=== PATIENT | female | born 1935 | race Caucasian/White ===

== ENCOUNTER 2022-02-13 11:53 | Inpatient (IN) ==
[2022-02-13] MEDS ORDERED: PANTOPRAZOLE 40 MG VIAL IV STA (12:33)
[2022-02-13] MEDS ORDERED: SODIUM CHLORIDE 0.9% 1,000 ML IV STA (12:33)
[2022-02-13 12:38] LABS: Basophils # 0.1 10*3/uL (0.0-0.2); Basophils % 0.7 % (0.0-0.8); Eosinophils # 0.1 10*3/uL (0.0-0.87); Eosinophils % 0.6 % (0.00-10.9); Hematocrit 23.1 VOL% (35.7-47.0); Hemoglobin 7.3 GM/DL (12.0-16.0); Immature Granulocytes Absolute 0.16 #; Lymphocytes % 12.7 % (21.3-54.2); Mean Corpuscular HGB Conc 31.6 GM/DL (32-36); Mean Corpuscular Volume 97.1 FL (87-102); Monocytes % 6.5 % (1.7-12.7); NRBC # 0.03 10*3/uL; Neutrophils % 78.5 % (38.7-73.9); Platelet Count 290 T/CUMM (130-400); Red Blood Count 2.38 MC/CUMM (3.8-5.5); Red Cell Distribution Width 13.5 % (9.3-17.3); White Blood Count 15.5 T/CUMM (4-12)
[2022-02-13 12:46] LABS: INR 1.1; PT Patient Result 12.2 SECS (10.1-12.1)
[2022-02-13 12:53] LABS: Alanine Aminotransferase 17 U/L (13-56); Alkaline Phosphatase 44 U/L (45-117); Aspartate Amino Transferase 14 U/L (0-37); Bilirubin,Total < 0.39 MG/DL (0.20-1.00); Blood Urea Nitrogen 111 MG/DL (7-18); Calcium 9.1 MG/DL (8.5-10.1); Carbon Dioxide 25 MMOL/L (21-32); Chloride 108 MMOL/L (98-107); Glucose 146 MG/DL (74-106); Osmolality,Calculated 312.7 MOS/KG (273-304); Potassium 4.4 MMOL/L (3.5-5.1); Sodium 138 MMOL/L (136-145); Total Protein 5.6 G/DL (6.4-8.2)
[2022-02-13] MEDS ORDERED: SODIUM CHLORIDE 0.9% 1,000 ML IV PRN ×3 (14:15→16:02)
[2022-02-13] MEDS ORDERED: PROMETHAZINE INJ 12.5 MG in SODIUM CHLORIDE 0.9% 50 ML IV PRN (15:21)
[2022-02-13] MEDS ORDERED: DIAZEPAM 2 MG TABLET PO PRN (16:00)
[2022-02-13] MEDS: SODIUM CHLORIDE 0.9% 1,000 ML IV SCH (18:15)
[2022-02-13] MEDS: ACETAMINOPHEN 325 MG TABLET PO PRN (19:18)
[2022-02-13] MEDS: DOCUSATE SODIUM 100 MG CAPSULE PO SCH (21:16)
[2022-02-13] MEDS: MELATONIN 3 MG TABLET PO PRN (21:16)
[2022-02-13] MEDS: POLYETHYLENE GLYCOL POWDER 17 GM PACK PO SCH (21:17)
[2022-02-13] MEDS: PANTOPRAZOLE 40 MG VIAL IV SCH (21:17)
[2022-02-13] MEDS: buPROPion 75 MG TABLET PO SCH (21:36)
[2022-02-14 03:53] LABS: Basophils # 0.1 10*3/uL (0.0-0.2); Basophils % 0.7 % (0.0-0.8); Eosinophils # 0.1 10*3/uL (0.0-0.87); Eosinophils % 1.1 % (0.00-10.9); Hematocrit 22.3 VOL% (35.7-47.0); Hemoglobin 7.3 GM/DL (12.0-16.0); Immature Granulocytes % 0.7 %; Immature Granulocytes Absolute 0.06 #; Lymphocytes % 23.6 % (21.3-54.2); Mean Corpuscular HGB Conc 32.7 GM/DL (32-36); Mean Corpuscular Volume 95.7 FL (87-102); Mean Platelet Volume 9.4 FL (9.6-12.0); Monocytes # 0.8 10*3/uL (0.11-0.8); Monocytes % 9.1 % (1.7-12.7); NRBC # 0.03 10*3/uL; Neutrophils % 64.8 % (38.7-73.9); Platelet Count 182 T/CUMM (130-400); Red Blood Count 2.33 MC/CUMM (3.8-5.5); Red Cell Distribution Width 13.8 % (9.3-17.3); White Blood Count 8.4 T/CUMM (4-12)
[2022-02-14 04:23] LABS: Calcium 8.3 MG/DL (8.5-10.1); Osmolality,Calculated 311.8 MOS/KG (273-304); Potassium 3.7 MMOL/L (3.5-5.1)
[2022-02-14 04:28] LABS: Risk Ratio 3.52; VLDL Cholesterol 31.2 MG/DL
[2022-02-14] MEDS: LEVOTHYROXINE 88 MCG TABLET PO SCH (06:46)
[2022-02-14 07:53] LABS: Bacteria,Urine Occasional /HPF (Few); RBC,Urine <1 /HPF (0-4); Squamous Epithelial Cell,Urine Few /HPF (0-10)
[2022-02-14 07:54] LABS: Bilirubin,Urine Negative (Negative); Blood, Urine Negative (Negative); Glucose,Urine (UA) Negative (Negative); Ketones,Urine Negative (Negative); Nitrite,Urine Negative (Negative); Protein,Urine Negative (Negative); Urine Appearance Clear (Clear); Urine Color Yellow (Yellow); Urine Specific Gravity 1.015 (1.001-1.035); Urine Urobilinogen 0.2 eU/dL (<2.0); Urine pH 5.5 (4.5-8.0)
[2022-02-14] MEDS: PANTOPRAZOLE 40 MG VIAL IV SCH ×2 (09:52→20:39)
[2022-02-14] MEDS: LACTATED RINGERS 1,000 ML IV SCH (10:15)
[2022-02-14] MEDS ORDERED: propofoL 200 MG/20 ML VIAL IV ONE (10:18)
[2022-02-14] MEDS ORDERED: LIDOCAINE 2% 5 ML VIAL ONE (10:18)
[2022-02-14] MEDS ORDERED: SODIUM CHLORIDE 0.9% 1,000 ML IV PRN (10:44)
[2022-02-14] MEDS: ONDANSETRON 4 MG/2 ML VIAL IV PRN ×2 (11:04→20:39)
[2022-02-14] MEDS: DOCUSATE SODIUM 100 MG CAPSULE PO SCH ×2 (11:55→20:40)
[2022-02-14] MEDS: buPROPion 75 MG TABLET PO SCH ×2 (11:55→20:40)
[2022-02-14] MEDS: ROSUVASTATIN 10 MG TABLET PO SCH (11:55)
[2022-02-14] MEDS: CHOLECALCIFEROL 5,000 UNIT TABLET PO SCH (11:56)
[2022-02-14] MEDS: POLYETHYLENE GLYCOL POWDER 17 GM PACK PO SCH ×2 (11:56→20:40)
[2022-02-14] MEDS: ACETAMINOPHEN 325 MG TABLET PO PRN ×2 (12:02→18:46)
[2022-02-14] MEDS: SODIUM CHLORIDE 0.9% 1,000 ML IV SCH (15:43)
[2022-02-14 18:03] LABS: Hematocrit 25.8 VOL% (35.7-47.0); Hemoglobin 8.4 GM/DL (12.0-16.0)
[2022-02-14] MEDS: MELATONIN 3 MG TABLET PO PRN (20:40)
[2022-02-15 05:20] LABS: Basophils % 0.8 % (0.0-0.8); Eosinophils # 0.1 10*3/uL (0.0-0.87); Eosinophils % 2.3 % (0.00-10.9); Hematocrit 26.4 VOL% (35.7-47.0); Hemoglobin 8.5 GM/DL (12.0-16.0); Immature Granulocytes % 0.6 %; Immature Granulocytes Absolute 0.03 #; Lymphocytes # 1.4 10*3/uL (1.4-4.0); Lymphocytes % 28.7 % (21.3-54.2); Mean Corpuscular HGB Conc 32.2 GM/DL (32-36); Mean Corpuscular Volume 93.3 FL (87-102); Mean Platelet Volume 9.5 FL (9.6-12.0); Monocytes # 0.4 10*3/uL (0.11-0.8); Monocytes % 8.2 % (1.7-12.7); NRBC # 0.02 10*3/uL; Neutrophils % 59.4 % (38.7-73.9); Platelet Count 175 T/CUMM (130-400); Red Blood Count 2.83 MC/CUMM (3.8-5.5); Red Cell Distribution Width 16.1 % (9.3-17.3); White Blood Count 4.9 T/CUMM (4-12)
[2022-02-15 05:39] LABS: Calcium 8.1 MG/DL (8.5-10.1); Osmolality,Calculated 291.1 MOS/KG (273-304); Potassium 3.5 MMOL/L (3.5-5.1)
[2022-02-15] MEDS: LEVOTHYROXINE 88 MCG TABLET PO SCH (06:37)
[2022-02-15] MEDS: buPROPion 75 MG TABLET PO SCH (08:38)
[2022-02-15] MEDS: CHOLECALCIFEROL 5,000 UNIT TABLET PO SCH (08:38)
[2022-02-15] MEDS: ROSUVASTATIN 10 MG TABLET PO SCH (08:38)
[2022-02-15] MEDS: POLYETHYLENE GLYCOL POWDER 17 GM PACK PO SCH (08:38)
[2022-02-15] MEDS: DOCUSATE SODIUM 100 MG CAPSULE PO SCH (08:38)
[2022-02-15] MEDS: PANTOPRAZOLE 40 MG VIAL IV SCH (08:42)
[2022-02-15] MEDS: SODIUM CHLORIDE 0.9% 1,000 ML IV SCH (10:01)
[2022-02-15 11:55] VITALS: BP 141/62
[2022-02-15 12:25] LABS: Hematocrit 28.8 VOL% (35.7-47.0); Hemoglobin 9.4 GM/DL (12.0-16.0)
[2022-02-15] MEDS: LACTATED RINGERS 1,000 ML IV SCH (13:46)
== END 2022-02-15 16:14 | disposition home or self-care (01) | DRG 378 ==
LOC: EDBD → SUATTDRO → EDUNIT# → N.ED 11:53 → N.EDINP 14:53 → N.2E 17:25
PROVIDERS: ADMIT Internal Medicine; ATTEND Hospitalist